=== PATIENT | male | born 1930 | race Caucasian/White ===

== ENCOUNTER 2018-11-22 20:47 | Inpatient (IN) ==
[2018-11-22 22:32] LABS: ALB/GLOB RATIO 1.7; CALCIUM 9.4 mg/dL (8.8-10.2); CREATININE 1.2 mg/dL (0.7-1.2); POTASSIUM 4.1 mmol/L (3.5-5.1); TOTAL BILIRUBIN 0.39 mg/dL (0.20-1.00); TOTAL PROTEIN 6.3 g/dL (6.3-8.3)
[2018-11-22] MEDS ORDERED: NORCO-7.5 PO ONE (23:09)
[2018-11-22] MEDS ORDERED: ZANAFLEX PO ONE (23:09)
[2018-11-22 23:16] LABS: BASO# 0.01 X1000 (0.0-0.2); BASO% 0.1 % (0.0-0.8); EOS# 0.05 X1000 (0.0-0.7); EOS% 0.4 % (0.0-10.0); HEMATOCRIT 37.6 % (42.0-52.0); HEMOGLOBIN 12.9 g/dL (14.0-18.0); IMM GRAN# 0.03 X1000 (0.0-0.04); IMM GRAN% 0.2 % (0.0-0.5); LYMPH# 1.05 X1000 (1.2-3.4); MCH 32.7 PG (27-31); MCHC 34.3 g/dL (33-37); MCV 95.2 FL (81-99); MONO# 1.48 X1000 (0.11-0.59); MONO% 11.3 % (1.7-9.3); MPV 9.6 FL (7.4-10.4); NEUT# 10.52 X1000 (1.4-6.5); PLT 286 X1000 (130-400); RBC 3.95 XMIL (4.7-6.1); RDW 13.2 % (11.5-14.5); WBC 13.14 X1000 (4.8-10.8)
--- NOTE | 2018-11-22 23:59 | PROVIDER DOCUMENTATION ---
This chart was entered by Rosita Mercado Scribe, acting as scribe for Hector Akins DO. HPI-Musculoskeletal Pain/Inj - GENERAL Chief Complaint: General Adult Stated Complaint: PAIN IN SIDE Time Seen by Provider: 11/22/18 21:38 - HX OF PRESENT ILLNESS-MUSKULOSKELTAL Quality of Pain: reports: aching Severity in ED: moderate Onset/Duration: 24 hours ago Timing: still present Modifying Factors: improves with: nothing Any recent injury?: No Locality of Occurance: Home Similar Symptoms Previously?: No Recently seen or treated by another doctor?: No - TRUNK INJURY Location of Injury(s)/Pain: reports: ribs Context / Method of Injury: reports: other (pt lifted yesterday and has had pain in L ribs since.) Associated Symptoms: reports: shortness of breath, pain with breathing Review of Systems - Adult - REVIEW OF SYSTEMS - ADULT Constitutional: reports: no symptoms reported. denies: chills, fever Eyes: reports: no symptoms reported Ears, Nose, Mouth & Throat: reports: no symptoms reported Cardiovascular: reports: no symptoms reported. denies: chest pain, edema Respiratory: reports: no symptoms reported Gastrointestinal: reports: no symptoms reported Genitourinary: reports: no symptoms reported Musculoskeletal: reports: other (L side/ ribs) Integumentary: reports: no symptoms reported Neurological: reports: no symptoms reported. denies: dizziness/vertigo, headac he/migraines Psychiatric: reports: no symptoms reported Endocrine: reports: no symptoms reported Allergic/Immunologic: reports: no symptoms reported All Other Systems: Reviewed and Negative Past History - Adult - PAST MEDICAL HISTORY-ADULT Review of Records: reports: Old Records Reviewed, Nursing Assessment Review, Medications Reviewed, Social history reviewed & non-contributory. Major Childhood Illnesses: reports: denies history Cardiovascular: reports: HTN Respiratory: reports: denies history Gastrointestinal: reports: GERD Physical Exam-Injury Related - Physical Exam-Injury Related General Appearance: appears well, alert, mild distress Eyes: PERRL/EOMI, pink conjunctivae Head, Ears, Nose, Mouth & Throat: normocephalic/atraumatic, moist mucous membranes, normal ENT inspection, TMs normal Neck: non-tender, supple Respiratory: lungs clear, decreased breath sounds (left), pain on inspiration, splinting, rib tenderness Cardiovascular: normal peripheral pulses, regular rate, rhythm, no gallop, no JVD Chest/Breast: deferred Abdominal Exam: normal bowel sounds, soft, no organomegaly, no pulsatile mass Male Genitalia: deferred Rectal Exam: deferred Hemoccult Exam: deferred Lymphatic: no adenopathy Back Exam: normal inspection, no CVA tenderness Extremity: normal range of motion, non-tender Integumentary: normal color, warm/dry Neurologic: grossly normal Progress - PLAN OF CARE/RESULTS Progress/Plan/Lab Results: Vital Signs - 8 hr 11/22/18 20:49 11/22/18 21:15 11/22/18 21:20 Temperature 98.3 F Pulse Rate 101 H 92 H Respiratory Rate 20 25 H 23 Blood Pressure 145/70 O2 Sat by Pulse Oximetry 92 L 93 L 94 L 11/22/18 21:30 11/22/18 21:36 11/22/18 21:40 Temperature Pulse Rate 92 H 96 H 99 H Respiratory Rate 25 H 29 H 27 H Blood Pressure 141/73 O2 Sat by Pulse Oximetry 93 L 91 L 91 L 11/22/18 21:42 11/22/18 21:50 11/22/18 22:09 Temperature Pulse Rate 100 H 100 H 108 H Respiratory Rate 19 27 H 23 Blood Pressure 141/73 O2 Sat by Pulse Oximetry 92 L 91 L 91 L 11/22/18 22:10 11/22/18 22:20 11/22/18 22:30 Temperature Pulse Rate 106 H 105 H 101 H Respiratory Rate 28 H 30 H 26 H Blood Pressure O2 Sat by Pulse Oximetry 91 L 91 L 91 L 11/22/18 22:40 Temperature Pulse Rate 97 H Respiratory Rate 25 H Blood Pressure O2 Sat by Pulse Oximetry 89 L Laboratory Results - last 24 hr 11/22/18 11/22/18 11/22/18 21:40 21:40 21:40 WBC 13.14 H RBC 3.95 L Hgb 12.9 L Hct 37.6 L MCV 95.2 MCH 32.7 H MCHC 34.3 RDW Std Deviation 13.2 Plt Count 286 MPV 9.6 Immature Gran % (Auto) 0.2 Neut % (Auto) 80.0 H Lymph % (Auto) 8.0 L Finney % (Auto) 11.3 H Eos % (Auto) 0.4 Baso % (Auto) 0.1 Immature Gran # (Auto) 0.03 Neut # (Auto) 10.52 H Lymph # (Auto) 1.05 L Finney # (Auto) 1.48 H Eos # (Auto) 0.05 Baso # (Auto) 0.01 Sodium 143 Potassium 4.1 Chloride 104 Carbon Dioxide 25 Anion Gap 14 BUN 30 H Creatinine 1.2 Estimated GFR/1.73 m2 57 BUN/Creatinine Ratio 25 Glucose 127 H Calculated Osmolality 293 Calcium 9.4 Total Bilirubin 0.39 AST 8 L ALT 15 Alkaline Phosphatase 81 Creatine Kinase 85 Troponin T < 0.010 Total Protein 6.3 Albumin 4.0 Globulin 2.3 Albumin/Globulin Ratio 1.7 Orders Category Date Time Status RIBS UNILAT W/PA CHEST LEFT [RAD] Stat Exams 11/22/18 21:46 Taken BLOOD CULTURE [BLDCUL] Stat Lab 11/22/18 23:47 Uncollected CBC WITH ELECTRONIC DIFF [HEME] Stat Lab 11/22/18 21:40 Completed CK PROFILE [SP CHEM] Stat Lab 11/22/18 21:40 Completed COMPREHENSIVE METABOLIC PANEL [CHEM] Stat Lab 11/22/18 21:40 Completed TROPONIN T Stat Lab 11/22/18 21:40 Completed Hydrocodone/APAP 7.5 mg/325 mg [Bagley-7.5] Med 11/22/18 23:09 Discontinued 1 each PO NOW ONE Tizanidine [Zanaflex] Med 11/22/18 23:09 Once 4 mg PO NOW ONE EKG [EKG] Stat Ther 11/22/18 20:54 Ordered Result Diagrams: 11/22/18 21:40 11/22/18 21:40 - XRAY 1 XRAY Study: Ribs (elevated left hemidiaphram. Small effusion and atelectasis. No rib fracture) - CONSULTS/PCP/HOSPITALIST Notification #1 *Consult/PCP/Hospitalist*: Dr. Green Time Discussed: 23:55 Reason/Comments: admit/ will see in ED Consult Disposition: Admit Departure - Departure Date of Disposition Decision: 11/22/18 Time of Disposition Decision: 23:56 DIAGNOSIS: Left lower lobe pneumonia Disposition: ADMITTED INPATIENT 09 Certified Medical Emergency: Emergent Condition: Stable Referrals and Follow-Ups: Aung Lozano MD [Primary Care Provider] - - Critical Care Note This patient required my direct & personal management of CC.: No Attestation - Physician/ IRVING Attestation Patient care was provided by Advanced Practice Provider:: No The physician spent face to face time with patient:: Yes Advanced Practice Provider documentation review:: Supervising physician onsite and consulted in the evaluation and care of this patient. The physician did have a face to face encounter with the patient. This chart was documented by the indicated scribe, (Rosita Mercado, Joanna) and accurately reflects the services I performed and decisions made by me, Hector Akins DO, as attested by the provider's signature.
--- NOTE | 2018-11-23 01:15 | EKG Report ---
Test Performed on : 11/22/2018 9:00:02 PM Test Reason : pain in left side Blood Pressure : / mmHG Vent. Rate : 100 BPM Atrial Rate : 100 BPM P-R Int : 000 ms QRS Dur : 074 ms QT Int : 312 ms P-R-T Axes : 000 010 070 degrees QTc Int : 402 ms Accelerated Junctional rhythm. Abnormal ECG No previous ECGs available Unconfirmed Result
[2018-11-23] MEDS ORDERED: LEVAQUIN 750 MG/D5W 750 MG/150 ML IVPB IV SCH (01:49)
[2018-11-23] MEDS ORDERED: ZOFRAN IV PRN (01:49)
[2018-11-23] MEDS ORDERED: LOVENOX SUBQ SCH ×2 (01:49→13:00)
--- NOTE | 2018-11-23 03:35 | HISTORY AND PHYSICAL ---
CHIEF COMPLAINT: Pain left side. HISTORY OF PRESENT ILLNESS: Patient is an 88-year-old male who presented to [facility]'s ER mainly due to pain in his left side low shoulder. States several days ago he had attempted to pull his up and felt as though he had pulled something in his shoulder. Since then, he has had increased cough, increased shortness of breath. He is not currently on oxygen at home. He notes he is having pain in his left side left shoulder. Notes the pain is moderate at times. Denied any fevers, chills. Denies any production to his cough. PAST MEDICAL HISTORY: Reflux, hypertension, history of BPH. SOCIAL HISTORY: He is a nonsmoker, is a nondrinker. Lives at home with his . SURGICAL HISTORY: He has had back surgery in the past. REVIEW OF SYSTEMS: As noted above. Denies any fevers, chills. Positive cough, nonproductive. Positive pain with breathing and with moving his left upper extremity, shoulder. Denies any headaches, blurred vision, change in vision. Denies any focalized numbness, tingling, weakness in his extremities. Denies dysuria, urinary frequency. Denies constipation, diarrhea, melena, hematochezia. Denies any weight loss, weight gain. Does have chronic swelling in his lower extremities but only minimally. Denies orthopnea, PND. Denies any focalized weakness. PHYSICAL EXAMINATION: VITAL SIGNS: Temperature 98.3 degrees, pulse 101, respiratory 20, BP 145/70, saturation 89% on room air. HEENT: Normocephalic. NECK: Supple. CARDIOVASCULAR: Tachycardia. No murmurs. CHEST: Positive rhonchi throughout. No appreciable crackles. Decreased air movement but appears equal. No wheezing. ABDOMEN: Soft, nondistended. EXTREMITIES: Moves all extremities. Does have trace edema in bilateral lower extremities. NEUROLOGIC: No focal changes. Patient is awake, alert, oriented. SKIN: Warm and dry. No rashes. LABORATORIES: WBCs 13, hemoglobin and hematocrit 12 and 37. CMP essentially normal with a glucose at 127. Chest x-ray with atelectasis and questionable infiltrate versus atelectasis. ASSESSMENT: 1. Leukocytosis. 2. Hypoxic respiratory failure, acute. 3. Abnormal chest x-ray, atelectasis versus pneumonia. 4. Hypertension. 5. Left shoulder pain. 6. Coughing. PLAN: Given the patient is coughing and has atelectasis versus pneumonia, we are going to place him on antibiotics. We are going to attempt to get a CT scan to further delineate. We will follow his heart rates as well as his hypoxic respiratory failure. He is not currently on oxygen at home. We will treat him symptomatically. Follow his blood pressures. Further orders as needed. cc: MD Aung Walters MD
[2018-11-23] MEDS: NORCO-7.5 PO PRN ×3 (04:25→18:09)
--- NOTE | 2018-11-23 05:52 | Diag Imaging Result Doc PS360 ---
EXAM: CT THORAX W/WO CONTRAST HISTORY: pna? TECHNIQUE: CT chest with and without intravenous contrast COMPARISON: None. FINDINGS: There are filling defects at the bifurcation of the left main pulmonary artery with extension into the left and lower lobe pulmonary arteries and their branches. Smaller pulmonary emboli in the right lower lobe branches. No pleural effusions. No cardiomegaly. No thoracic aortic aneurysm or dissection. No enlarged lymph nodes. There are increased interstitial markings in the lower lungs. No consolidation. No bronchiectasis. Limited images through the upper abdomen reveal several hypodense hepatic renal lesions believed to be cysts. Nonspecific 13 mm cyst near the tail of the pancreas. IMPRESSION: 1.Pulmonary emboli 2.Atelectasis and possible small infiltrates in the lower lobes 3.Hepatic and renal cysts with fatty infiltration of the liver 4.Small nonspecific cystic lesion in the tail of the pancreas 5.A preliminary report was given at 2:38 AM This exam was performed using automated exposure control, adjustment of mA or kV according to patient size, and/or use of iterative reconstruction technique. Electronically signed by Alvin Estrada 11/23/2018 5:50 AM
--- NOTE | 2018-11-23 07:34 | Diag Imaging Result Doc PS360 ---
EXAM: RIBS UNILAT W/PA CHEST LEFT HISTORY: chest wall pain TECHNIQUE: Chest and left rib detail, four views COMPARISON: None. FINDINGS: No contusion. No pneumothorax. No displaced fracture. Atelectasis and/or small infiltrate in the left lung base. IMPRESSION: No acute injury. Electronically signed by Alvin Estrada 11/23/2018 7:32 AM
[2018-11-23] MEDS: LOVENOX SUBQ SCH ×2 (08:47→21:00)
[2018-11-23] MEDS: FLOMAX PO SCH ×2 (13:56→13:57)
[2018-11-23] MEDS: ROBAXIN PO PRN (13:56)
--- NOTE | 2018-11-23 14:20 | PROGRESS NOTE ---
DATE: 11/23/2018 SUBJECTIVE: The patient was admitted in the early hours of this morning. He was misassigned to Dr. Green rather than to me. He was initially diagnosed with possible pneumonia, but the subsequent CT scan showed pulmonary thromboembolism. I have transferred the patient over to my care ordered appropriate blood clotting tests increased his Lovenox dose and we will continue to monitor. We also placing BERNIE montez. cc: Aung Lozano MD
[2018-11-23] MEDS ORDERED: NORVASC PO ONE (20:14)
[2018-11-23] MEDS ORDERED: LOTENSIN PO ONE (20:45)
[2018-11-23] MEDS: PRAVACHOL PO SCH (20:59)
[2018-11-23] MEDS: NORVASC PO SCH (21:00)
[2018-11-24] MEDS: NORCO-7.5 PO PRN ×3 (03:57→17:21)
[2018-11-24] MEDS: NEXIUM PO SCH (06:23)
[2018-11-24 06:25] LABS: BASO# 0.03 X1000 (0.0-0.2); BASO% 0.3 % (0.0-0.8); EOS# 0.09 X1000 (0.0-0.7); EOS% 0.8 % (0.0-10.0); HEMATOCRIT 37.2 % (42.0-52.0); HEMOGLOBIN 12.5 g/dL (14.0-18.0); LYMPH# 1.08 X1000 (1.2-3.4); LYMPH% 9.4 % (20.5-51.1); MCH 32.6 PG (27-31); MCHC 33.6 g/dL (33-37); MCV 96.9 FL (81-99); MONO# 1.41 X1000 (0.11-0.59); MONO% 12.3 % (1.7-9.3); MPV 8.9 FL (7.4-10.4); NEUT# 8.86 X1000 (1.4-6.5); NEUT% 77.2 % (42.2-75.2); PLT 251 X1000 (130-400); RBC 3.84 XMIL (4.7-6.1); WBC 11.47 X1000 (4.8-10.8)
[2018-11-24 06:48] LABS: AGAP 10; BUN 20 mg/dL (8-22); CALCIUM 8.6 mg/dL (8.8-10.2); CHLORIDE 101 mmol/L (98-107); COSMO 273; ESTIMATED GFR > 60; GLUCOSE 109 mg/dL (70-104); SODIUM 135 mmol/L (136-145); TCO2 24 mmol/L (25-35)
[2018-11-24] MEDS: FLOMAX PO SCH (08:46)
[2018-11-24] MEDS: LOVENOX SUBQ SCH ×2 (08:46→20:16)
[2018-11-24] MEDS: MOBIC PO SCH (08:46)
[2018-11-24] MEDS: LOTENSIN PO SCH (08:46)
[2018-11-24] MEDS: NORVASC PO SCH (08:46)
--- NOTE | 2018-11-24 11:23 | PROGRESS NOTE ---
DATE: 11/24/2018 SUBJECTIVE: The patient complains about being stuck in the bed. He wants to be able to get up and go to the bathroom. He feels a bit weak, and he still has some pain in the left side of his chest. He also complains that both mornings that he has been here, he has coughed up some bloody mucus. He feels that this is lessening. OBJECTIVE: Vital Signs: Temperature 99.0, pulse 98, respirations 16, blood pressure 128/64, saturating 97% on nasal cannula. General: He is a well-developed, well-nourished, white male in no acute distress. HEENT: Sclerae anicteric. Lungs: Clear to auscultation bilaterally. There is no chest wall tenderness that I can perceive with palpation. Cardiovascular: Heart rate is in the 90s. He is not struggling to breathe at all. Extremities: No peripheral edema. IMAGING AND LABORATORY DATA: White cell count 11.47, hematocrit 37.2. Serum electrolytes are normal. A Doppler study was performed, but I do not have the results or report on that yet. ASSESSMENT AND PLAN: The patient has pulmonary emboli on the left side. He is on Lovenox subcutaneously. He continues to have mild hemoptysis. His oxygen saturations are improving. Doppler study of his legs was performed. We do not have results on this yet. He is wearing BERNIE hose. The overall plan is to slightly increase his activity so that he can sit up and be a little more comfortable. We will go about this gingerly and slowly. We will continue Lovenox, and await Doppler study results. Labs for hypercoagulable state have been sent off. Given his age, it is unlikely that we will find anything. I will consult Dr. Anthony for his opinion for tomorrow morning. I suspect that we will end up treating with a Xa inhibitor for 6 months or so, assuming that he does not have any major clot in the leg. The patient's blood pressure is adequately controlled now that he is back on appropriate medications. cc: Aung Lozano MD
[2018-11-24] MEDS: ROBAXIN PO PRN ×2 (13:05→20:27)
[2018-11-24] MEDS: PRAVACHOL PO SCH (20:16)
[2018-11-25] MEDS: NORCO-7.5 PO PRN (02:57)
[2018-11-25] MEDS: NEXIUM PO SCH (06:10)
[2018-11-25 08:06] LABS: BASO# 0.02 X1000 (0.0-0.2); BASO% 0.2 % (0.0-0.8); HEMATOCRIT 36.8 % (42.0-52.0); HEMOGLOBIN 12.5 g/dL (14.0-18.0); IMM GRAN# 0.06 X1000 (0.0-0.04); IMM GRAN% 0.6 % (0.0-0.5); LYMPH# 1.43 X1000 (1.2-3.4); LYMPH% 14.1 % (20.5-51.1); MCH 32.1 PG (27-31); MCV 94.6 FL (81-99); MONO# 1.31 X1000 (0.11-0.59); MONO% 12.9 % (1.7-9.3); MPV 8.9 FL (7.4-10.4); NEUT# 7.13 X1000 (1.4-6.5); NEUT% 70.2 % (42.2-75.2); PLT 328 X1000 (130-400); RBC 3.89 XMIL (4.7-6.1); RDW 12.7 % (11.5-14.5); WBC 10.15 X1000 (4.8-10.8)
[2018-11-25] MEDS: LOTENSIN PO SCH (08:06)
[2018-11-25] MEDS: FLOMAX PO SCH (08:06)
[2018-11-25] MEDS: NORVASC PO SCH (08:06)
[2018-11-25] MEDS: LOVENOX SUBQ SCH ×2 (08:07→20:55)
[2018-11-25] MEDS: MOBIC PO SCH (08:07)
--- NOTE | 2018-11-25 10:00 | Extremity Venous Study ---
PROCEDURE NAME: Venous U/S Bilateral Legs - 11/23/2018 POWER SYSTEM DISPATCHER: Min REQUESTING PHYSICIAN: Dr. Lozano INDICATION: Pulmonary thromboembolus. FINDINGS: Deep superficial veins of bilateral lower extremities were visualized along their course. All vessels appear compressible for forward flow and no evidence of intraluminal thrombus. There was an incidental noted left popliteal fluid collection. SUMMARY: No deep or superficial venous thrombosis noted in the bilateral lower extremities with left popliteal fluid collection. cc: MD Aung Landa MD
--- NOTE | 2018-11-25 14:22 | HEMO/ONC CONSULTATION ---
DATE: 11/25/2018 REASON FOR CONSULTATION: Pulmonary thromboembolisms. HISTORY OF PRESENT ILLNESS: Mr. Parker is an 88-year-old male, who presented to [facility] due to left sided pain. 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 He states that several days ago he was helping her up and felt something pull in his shoulder and his ribs. Since that time, he has had increased cough, increased shortness of breath with pain that is not improving. He denies any fevers or chills or productive cough. Once in the ER, a CT of the chest was performed, which revealed pulmonary embolism. The patient is not known to have a clotting disorder. He denies any prolonged periods of immobilization. He denies being on blood thinners. PAST MEDICAL HISTORY: Reflux, hypertension, BPH. SURGICAL HISTORY: Back surgery. SOCIAL HISTORY: He denies smoking, drinking. REVIEW OF SYSTEMS: Denies fever, chills, infections, nausea, vomiting, diarrhea. Positive for nonproductive cough, pain with inspiration, pain with moving his arms. PHYSICAL EXAMINATION: Vital Signs: Temperature 98.2 degrees, pulse rate 81, respiratory rate 20, blood pressure 125/59, O2 saturation 97% on room air. Pain: He is in 0/10 pain. General: Elderly-appearing gentleman in no acute distress. He is well developed, hydrated, and well nourished. Skin: Warm, dry, and intact without rashes or lesions. HEENT: Mouth: Oral mucosa is pink and moist with good dentition. Cardiovascular: Normal S1, S2. Heart rate and rhythm are regular. No murmurs, gallops, or rubs were auscultated. Respiratory: Lungs are clear to auscultation. No signs of respiratory distress. Chest Wall: Nontender, symmetric, and without deformities. Abdominal: Abdomen is soft, symmetric, and nontender without distention. Extremities: Upper and lower extremities are atraumatic in appearance without edema or deformity. LABORATORY: WBC 10.15, hemoglobin 12.5, hematocrit 36.8, platelet count 328,000, ANC 7.13. RADIOLOGY: Venous ultrasound of bilateral legs shows no deep or superficial venous thrombosis noted in bilateral lower extremities. ASSESSMENT: Pulmonary embolism. PLAN: We will await the patient's hypercoagulable workup at this time. It does appear to be a spontaneous embolism. We recommend Eliquis twice a day. We will follow up with him outpatient. Thank you for this consultation. Dictated by DASHAWN Wall for Eusebio Anthony MD Patient seen and examined. Patient with spontaneous pulmonary embolism. No DVT on ultrasound. Hypercoaguable workup is pending. Discussed with Dr. Lozano. Start on Eliquis when possible. Follow-up in clinic in 2 weeks. cc: MD Aung Wilhelm MD [facility]
[2018-11-25] MEDS: PRAVACHOL PO SCH (20:55)
[2018-11-25] MEDS: ROBAXIN PO PRN (21:01)
--- NOTE | 2018-11-25 22:20 | PROGRESS NOTE ---
DATE: 11/25/2018 SUBJECTIVE: The patient was seen early in the morning and multiple events took place throughout the day which I will review. This dictation is coming in late in the evening. The patient has no complaints. He was able to get up and go to the restroom without any great difficulty. He has not had any shortness of breath. He still has some vague chest wall discomfort, more so on the left, but also a little bit on the right. His oxygen saturation has been variable. OBJECTIVE: Vital Signs: 98.2, 81, 20, 125/59, 97% saturated on 2 L nasal cannula. PHYSICAL EXAMINATION: Lungs: Are clear. Cardiovascular: Regular. Neuro/psych: Patient is alert, oriented, conversive and appropriate. Extremities: No pain or peripheral edema. LABORATORIES: White cell count is 10.1, hematocrit is 37. Doppler study. There were no superficial or venous clots seen in the patient's lower extremities. ASSESSMENT AND PLAN: 1. The patient's pulmonary thromboembolism seems to have responded to a certain degree to Lovenox treatment. I have consulted Dr. Anthony. During the day, the patient's Doppler study has come back as negative in the lower extremities. Dr. Anthony and I discussed the use of Eliquis which I think will be ordered for him starting tomorrow. Several other studies for his hypercoagulability workup have been received, but results are not available yet. 2. The patient's blood pressure is under reasonable control. 3. Chest wall pain and overall shortness of breath is improved. 4. Overall disposition, likely discharge tomorrow on Eliquis with follow up in my office within about 2 weeks. cc: Aung Lozano MD
[2018-11-26] MEDS: NEXIUM PO SCH (06:16)
[2018-11-26 08:37] VITALS: BP 137/57
[2018-11-26] MEDS: MOBIC PO SCH (08:38)
[2018-11-26] MEDS: FLOMAX PO SCH (08:38)
[2018-11-26] MEDS: LOTENSIN PO SCH (08:38)
[2018-11-26] MEDS: NORVASC PO SCH (08:38)
[2018-11-26] MEDS ORDERED: ELIQUIS PO SCH ×2 (09:00→21:00)
--- NOTE | 2018-11-26 17:16 | DISCHARGE SUMMARY ---
ADMISSION DATE: 11/23/2018 DISCHARGE DATE: 11/26/2018 DISCHARGE DIAGNOSES: 1. Pulmonary thromboembolism. 2. Other chest pain. 3. Pleurodynia. 4. Hypertension. 5. Benign prostatic hypertrophy. CONSULTATIONS: Eusebio Anthony. OPERATIVE PROCEDURES: None. HOSPITAL COURSE: This 88-year-old white male had his family call the office on Sunday complaining of left lateral chest pain which he felt was due to an injury in lifting his invalid . We called in some pain medication for him but this was inadequate and eventually brought him to the emergency room. His initial evaluation included a chest x-ray which was grossly normal, slightly low oxygen saturation and a slightly elevated white count. Despite the lack of infiltrative process on the chest x-ray, the patient was admitted. Dr. Peter crystal ordered a CT scan of the chest and this revealed pulmonary thromboembolism on the left side at the site where patient's pain bowens. The patient was kept in the hospital and put on Lovenox subcu. The following morning, I saw the patient and ordered a hypercoagulability workup and consulted Dr. Eusebio Anthony to see the patient. Dr. Anthony added a few other tests to our workup. The patient tolerated all procedures in the hospitalization well. He had a Doppler study of the lower extremities, which did not show any actual clot. The patient denied any trauma to the legs or arms and his pulmonary thromboembolism is rather inexplicable. In discussion of these facts Dr. Anthony and I agreed to put him on Eliquis 2.5 mg twice daily for 6 months. He will have followup with me or with Dr. Anthony in the future. I advised the patient to make sure that his posthospitalization followup was within 2 weeks. The remainder of the patient's home medications remain unchanged. cc: Aung Lozano MD
== END 2018-11-26 10:58 | disposition home or self-care (01) | DRG 176 ==
LOC: ED 20:47 → 1N 11-23 01:27 → INTOOBSV 11-23 01:27
PROVIDERS: ADMIT Internal Medicine; ATTEND Internal Medicine